=== PATIENT | female | born 1950 | race Caucasian/White ===

== ENCOUNTER 2022-02-16 23:21 | Emergency (ER) | payer MEDICARE ==
[~2022-02-16] VITALS: Ht 172.7 cm; Wt 77.2 kg
[~2022-02-16 23:21] MED LIST: ESTRADIOL1 MG PO; GABAPENTIN100 MG PO; LEVOTHYROXIN125 MCG PO; MELOXICAM7.5 MG PO; NAPROSYN500 MG PO; VENLAFAXINE HCL75 M1 PO
[2022-02-16 23:43] VITALS: BP 124/49
[2022-02-16 23:45] VITALS: BP 137/51
[2022-02-17] VITALS (75 sets, daily range): BP systolic 85–179; BP diastolic 34–106
[2022-02-17] MEDS ORDERED: ZOFRAN4 MG/TAB PO (01:36)
[2022-02-17] MEDS ORDERED: HYDROCO/APAP1 TA9 PO (01:36)
== END 2022-02-17 06:16 | disposition home or self-care (01) ==
LOC: ED 23:21
PROC: 0SS9XZZ Reposition Right Hip Joint, External Approach (ICD-10-PCS; principal; 2022-02-16)
DX: T84.020A Dislocation of internal right hip prosthesis, initial encounter (principal); F17.200 Nicotine dependence, unspecified, uncomplicated; Y83.1 Surgical operation with implant of artificial internal device as the cause of abnormal reaction of the patient, or of later complication, without mention of misadventure at the time of the procedure; Y92.009 Unspecified place in unspecified non-institutional (private) residence as the place of occurrence of the external cause
CPT/HCPCS: L1830